=== PATIENT | female | born 1990 | race Hispanic/Latino ===

== ENCOUNTER 2017-07-10 00:22 | Emergency (ER) | payer OTHER ==
[~2017-07-10] VITALS: Ht 162.6 cm; Wt 65.8 kg
[~2017-07-10 00:22] MED LIST: MACROBID 100 M100 MG PO; MULTI-DAY VITA1 EACH PO; PRENATAL TABLE1 EAC2 PO; PROAIR HFA0.09 MG/Ac PO; PROGESTERONE100 M2 PO; TESSALON PERLE100 M1 PO
--- NOTE | 2017-07-10 02:08 | ED GI/GU/ABDOMINAL COMPLAINT ---
History of Present Illness General Chief Complaint: General Adult Stated Complaint: MULTI COMP SORENSEN ? MED REACTION Source: patient, old records, friend Exam Limitations: no limitations Vital Signs & Intake/Output Vital Signs & Intake/Output Vital Signs Date Time Temp Pulse Resp B/P B/P Pulse O2 O2 Flow FiO2 Mean Ox Delivery Rate 07/10 0218 Room Air 07/10 0038 99.6 120 16 128/80 97 Room Air Room Air Allergies Coded Allergies: No Known Allergies (11/13/16) Reconcile Medications Vit No.130/Iron/FA ( Tablet) 27 MG IRON-800 MCG TABLET 1 TAB PO DAILY VITAMIN SUPPORT (Reported) Progesterone,Micronized (Progesterone) 100 MG CAPSULE 1 CAP PO QPM (Reported) Triage Note: 27YO FEMALE TO TRIAGE W/CO SORENSEN, FEELING WARM AND ABD CRAMPS. STATES DXED STREP ON FRIDAY AND PLACED ON PCN QID. Triage Nurses Notes Reviewed? yes ? N Is pt currently ? No HPI: The patient was diagnosed with strep throat on Friday. Patient has been taking penicillin 4 times a day since then. There are times that the patient does not eat while taking the penicillin. This evening she developed diffuse crampy abdominal pain. The pain is constant. There is no radiation outside of the abdominal area. No aggravating or mitigating factors. There is no nausea or vomiting. There is no constipation or diarrhea. There is no dysuria or hematuria. She also spiked a fever to 102 at home. Patient took Tylenol prior to arrival. She states that her throat still hurts all over it is much improved from where it was on Friday. There is no difficulty breathing or swallowing. Past History Travel History Traveled to [place] past 21 day No Medical History Any Pertinent Medical History? 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 No Review of Systems Review of Systems Constitutional: Reports: see HPI, chills, fever. EENTM: Reports: no symptoms. Respiratory: Reports: no symptoms. Cardiovascular: Reports: no symptoms. GI: Reports: see HPI, abdominal pain. Genitourinary: Reports: no symptoms. Musculoskeletal: Reports: no symptoms. Skin: Reports: no symptoms. Neurological/Psychological: Reports: no symptoms. Hematologic/Endocrine: Reports: no symptoms. Immunologic/Allergic: Reports: no symptoms. All Other Systems: Reviewed and Negative Physical Exam Physical Exam General Appearance: well developed/nourished, alert, awake, mild distress Head: atraumatic, normal appearance Eyes: Bilateral: PERRL, EOMI. Ears, Nose, Throat, Mouth: hearing grossly normal, moist mucous membrane Neck: normal inspection, supple, full range of motion Respiratory: normal breath sounds, chest non-tender, no respiratory distress, lungs clear Cardiovascular: regular rate/rhythm, normal peripheral pulses Gastrointestinal: normal bowel sounds, soft, non-tender, no organomegaly Back: normal inspection, normal range of motion Extremities: normal range of motion Neurologic/Psych: no motor/sensory deficits, awake, alert, oriented x 3, normal gait, normal mood/affect Skin: intact, normal color, warm/dry Core Measures ACS in differential dx? No Sepsis Present: No Sepsis Focused Exam Completed? No Progress Differential Diagnosis: appendicitis, biliary colic, cholecystitis, diverticulitis, gastritis, hepatitis, ischemic bowel, inflamm bowel dis Plan of Care: Orders Procedure Date/time Status URINALYSIS 07/10 206 Active LIPASE 07/10 206 Complete HUMAN BETA HCG SCREEN 07/10 206 Complete COMPREHENSIVE METABOLIC PANEL 07/10 206 Complete CBC WITHOUT DIFFERENTIAL 07/10 206 Complete AMYLASE 07/10 206 Complete Current Medications Sig/Mary Start time Last Medication Dose Stop Time Status Admin Ceftriaxone Sodium 1,000 MG ONCE ONE 07/11 399 UNVr (Rocephin) 07/10 0401 Laboratory Tests 07/10/17 0215: Anion Gap 13, Estimated GFR > 60, BUN/Creatinine Ratio 12.9, Glucose 107 H, Calcium 9.9, Total Bilirubin 0.6, AST 16, ALT 40, Alkaline Phosphatase 57, Total Protein 7.6, Albumin 4.4, Globulin 3.2, Albumin/Globulin Ratio 1.4, Amylase 47, Lipase 146, Total Beta HCG NEGATIVE, CBC w Diff MAN DIFF ORDERED, RBC 4.70, MCV 81.4, MCH 27.0, MCHC 33.1, RDW 12.4, MPV 7.7, Gran % 86.9 H, Lymphocytes % 7.6 L, Monocytes % 4.6, Eosinophils % 0.6, Basophils % 0.3, Absolute Granulocytes 15.4 H, Segmented Neutrophils 82 H, Band Neutrophils 4, Absolute Lymphocytes 1.3, Lymphocytes 9 L, Monocytes 4, Absolute Monocytes 0.8 H, Eosinophils 1, Absolute Eosinophils 0.1, Absolute Basophils 0, Platelet Estimate INCREASED, Normocytic RBCs VERIFIED, Normochromic RBCs VERIFIED, Elliptocytes FEW Diagnostic Imaging: Viewed by Me: CT Scan. Discussed w/RAD: CT Scan. Radiology Impression: PATIENT: TOBY SIU PRESENT AGE: 27 PATIENT ACCOUNT NO: [id number] : 91 LOCATION: [facility] ORDERING PHYSICIAN: Kobe Vargas MD SERVICE DATE: 07/10/17 EXAM TYPE: CAT - CT ABD & PELVIS W IV CONTRAST EXAMINATION: CT ABDOMEN AND PELVIS WITH CONTRAST CLINICAL INFORMATION: Right lower quadrant pain COMPARISON: None TECHNIQUE: Multidetector volumetric imaging was performed of the abdomen and pelvis following IV administration of 95 mL of Optiray 320 intravenous contrast. Sagittal and coronal reformatted images were obtained on the technologist's workstation. DLP: 271 mGy-cm FINDINGS: LUNG BASES: The visualized lung bases are unremarkable. LIVER, GALLBLADDER, AND BILIARY TREE: The liver is normal in size, shape, and attenuation. No focal hepatic lesion or biliary ductal dilatation is present. The gallbladder is contracted with no evidence of radiopaque gallstones , gallbladder wall thickening, or obvious pericholecystic inflammatory changes. PANCREAS: Unremarkable. SPLEEN: Unremarkable. ADRENAL GLANDS: Unremarkable. KIDNEYS AND URETERS: The kidneys are normal in size, shape, and attenuation. No hydronephrosis, hydroureter, or calculi seen. No perinephric stranding. BLADDER: Unremarkable. GASTROINTESTINAL TRACT: The stomach is unremarkable. The small bowel is normal in caliber. No obstruction. Normal appendix. No colonic wall thickening or inflammatory change. No free air. Trace pelvic free fluid. ABDOMINAL WALL: No significant hernia is appreciated. LYMPH NODES: Normal. VASCULAR: Circumaortic left renal vein. PELVIC VISCERA: The uterus is unremarkable. No adnexal mass. Likely bilateral ovarian follicles. OSSEOUS STRUCTURES: No acute or suspicious osseous abnormality. IMPRESSION: No acute findings of the abdomen or pelvis. No acute inflammatory changes. Normal appendix. DICTATED BY: Isaura CARR,James DATE/TIME DICTATED:07/10/17348 PULP PRESS TENDER:KASHMIR DATE/TIME TRANSCRIBED:07/10/17348 CONFIDENTIAL, DO NOT COPY WITHOUT APPROPRIATE AUTHORIZATION. <Electronically signed in Other Vendor System> SIGNED BY: Isaura CARR,James 07/10/17 0354 Initial ED EKG: none Departure Departure Disposition: HOME OR SELF CARE Condition: Stable Clinical Impression Primary Impression: Abdominal pain, unspecified site Qualifiers: Abdominal location: generalized Qualified Code: R10.84 - Generalized abdominal pain Secondary Impressions: Leukocytosis Qualifiers: Leukocytosis type: other Qualified Code: D72.828 - Other elevated white blood cell count Referrals: Sally CARR,Eamon Acosta (PCP/Family) Additional Instructions: STOP THE PENICILLIN TAKE CLINDA1 PILL THREE TIMES A DAY FOR 10 DAYS RETURNIF SYMPTOMS WORSEN OR FOR ANY CONCERNS Departure Forms: Customer Survey General Discharge Information Prescriptions: Current Visit Scripts Clindamycin HCl (Cleocin HCl) 1 CAP PO TID #30 CAP
[2017-07-10 02:24] LABS: ABSOLUTE BASOPHIL COUNT 0 /CUMM (0.0-0.2); ABSOLUTE EOSINOPHIL COUNT 0.1 /CUMM (0.0-0.7); ABSOLUTE GRANULOCYTE CT 15.4 /CUMM (1.4-6.5); ABSOLUTE LYMPH COUNT 1.3 /CUMM (1.2-3.4); ABSOLUTE MONOCYTE COUNT 0.8 /CUMM (0.10-0.60); BASOPHIL % 0.3 % (0.0-2.0); EOSINOPHIL % 0.6 % (0-5); GRANULOCYTE % 86.9 % (42.2-75.2); HEMATOCRIT 38.3 % (37-47); MEAN CORPUSCULAR HGB CONC 33.1 G/DL (33.0-37.0); MEAN CORPUSCULAR VOLUME 81.4 FL (81.0-99.0); MEAN PLATELET VOLUME 7.7 FL (7.4-10.4); PLATELET COUNT 404 /CUMM (130-400); RBC DISTRIBUTION WIDTH 12.4 % (11.5-14.5); WHITE BLOOD CELL COUNT 17.7 /CUMM (4.8-10.8)
[2017-07-10 03:50] VITALS: BP 119/76
--- NOTE | 2017-07-10 03:54 | CT SCAN REPORT ---
EXAMINATION: CT ABDOMEN AND PELVIS WITH CONTRAST CLINICAL INFORMATION: Right lower quadrant pain COMPARISON: None TECHNIQUE: Multidetector volumetric imaging was performed of the abdomen and pelvis following IV administration of 95 mL of Optiray 320 intravenous contrast. Sagittal and coronal reformatted images were obtained on the technologist's workstation. DLP: 271 mGy-cm FINDINGS: LUNG BASES: The visualized lung bases are unremarkable. LIVER, GALLBLADDER, AND BILIARY TREE: The liver is normal in size, shape, and attenuation. No focal hepatic lesion or biliary ductal dilatation is present. The gallbladder is contracted with no evidence of radiopaque gallstones, gallbladder wall thickening, or obvious pericholecystic inflammatory changes. PANCREAS: Unremarkable. SPLEEN: Unremarkable. ADRENAL GLANDS: Unremarkable. KIDNEYS AND URETERS: The kidneys are normal in size, shape, and attenuation. No hydronephrosis, hydroureter, or calculi seen. No perinephric stranding. BLADDER: Unremarkable. GASTROINTESTINAL TRACT: The stomach is unremarkable. The small bowel is normal in caliber. No obstruction. Normal appendix. No colonic wall thickening or inflammatory change. No free air. Trace pelvic free fluid. ABDOMINAL WALL: No significant hernia is appreciated. LYMPH NODES: Normal. VASCULAR: Circumaortic left renal vein. PELVIC VISCERA: The uterus is unremarkable. No adnexal mass. Likely bilateral ovarian follicles. OSSEOUS STRUCTURES: No acute or suspicious osseous abnormality. IMPRESSION: No acute findings of the abdomen or pelvis. No acute inflammatory changes. Normal appendix.
[2017-07-10] MEDS ORDERED: CLEOCIN HCL150 M1 PO (04:01)
== END 2017-07-10 04:16 ==
LOC: ERH 00:22
PROVIDERS: Emergency Medicine
DX: D72.829 Elevated white blood cell count, unspecified (principal); R10.84 Generalized abdominal pain; F10.10 Alcohol abuse, uncomplicated
CPT/HCPCS: 74177; 96361; 96374; 96375; J0696; J1885